=== PATIENT | female | born 1945 ===

== ENCOUNTER 2019-09-04 10:59 | Inpatient (IN) | payer MEDICARE, OTHER ==
[2019-09-04] MEDS ORDERED: NALOXONE 0.4 MG/ML 1 ML VIAL IV PRN (15:20)
[2019-09-04] MEDS ORDERED: ONDANSETRON 4 MG/2 ML VIAL IVP PRN (15:20)
[2019-09-04] MEDS ORDERED: DIPHENOX-ATROP 2.5-0.025 MG 1 EACH TAB PO PRN (15:28)
[2019-09-04] MEDS ORDERED: SODIUM CHLORIDE 0.9% 1,000 ML IV ONE (15:29)
--- NOTE | 2019-09-04 15:56 | P.HPIM ---
History of Present Illness H&P Date: 09/04/19 Chief Complaint: Patient transferred from [place] due to Covid relief The patient is a 73-year-old Serbian female with a past medical history of obesity who initially presented to [place] earlier yesterday with complaints of fever along with nausea vomiting and diarrhea and dry cough for the last several days. The patient was found to be covid positive and subsequently transferred here to [facility] as part of CoVID relief. The patient is Chaldean and her Yakut is minimal resulting in severe language barrier hence most of this history is obtained from medical records sent here from [place]. Apparently the history was taken as family was translating for the patient. There are no reports of shortness of breath, headache, sore throat or chest pain or reports of any sick contacts or recent travel. The patient did complain of fevers chills fatigue. Lab and imaging Review of records indicated a white count of 5.0 hemoglobin 12.9 platelets 182 BNP 37, sodium 134 potassium 3.9, bicarb 20, magnesium 1.7 , prolactin 0.73 , troponin 0.01 creatinine 0.94. AST 273 LT 173, CK 803, CRP 138 fibrinogen 529 LDH 601, lactate 1.1, EKG showed sinus tachycardia with a rate of 112. QTC was 467 Chest x-ray showed bibasilar opacities left greater than right concerning for multifocal infection . Patient was noted to be febrile with a temperature 102.9 and had normal saturations of 95% on room air The patient was noted to be Covid positive and was given doses of Pl aquenil,azithromycin and Rocephin Review of Systems pertinent pauses perHPI otherwise limited by patient's language barrier Medications and Allergies Home Medications Medication Instructions Recorded Confirmed Type Acetaminophen Tab [Tylenol Tab] 500 mg PO BID 09/04/19 09/04/19 History Apixaban [Eliquis] 2.5 mg PO BID 09/04/19 09/04/19 History Aspirin EC [Ecotrin Low Dose] 81 mg PO DAILY 09/04/19 09/04/19 History Atorvastatin [Lipitor] 40 mg PO HS 09/04/19 09/04/19 History Calcitriol [Rocaltrol] 0.25 mcg PO MOWEFR 09/04/19 09/04/19 History Calcium Carb-Vit D 500Mg-200Un 1 tab PO DAILY 09/04/19 09/04/19 History [Oscal 500+D] Cyanocobalamin (Vitamin B-12) 2,500 mcg PO DAILY 09/04/19 09/04/19 History [Vitamin B-12] Darbepoetin Shon [Aranesp] 60 mcg SQ WE 09/04/19 09/04/19 History Docusate [Colace] 100 mg PO BID 09/04/19 09/04/19 History Ergocalciferol [Vitamin D2] 50,000 unit PO Q7D 09/04/19 09/04/19 History FLUoxetine HCL [PROzac] 20 mg PO DAILY 09/04/19 09/04/19 History Ferrous Sulfate [Feosol] 325 mg PO Q7D 09/04/19 09/04/19 History Icosapent Ethyl [Vascepa] 2 gm PO AC-BID 09/04/19 09/04/19 History Levothyroxine Sodium [Synthroid] 125 mcg PO AC-BRKFST 09/04/19 09/04/19 History Lidocaine 5% Patch [Lidoderm] 2 patch TRANSDERM DAILY 09/04/19 09/04/19 History Megestrol [Megace] 400 mg PO DAILY 09/04/19 09/04/19 History Metoprolol Tartrate [Lopressor] 50 mg PO BID 09/04/19 09/04/19 History Sierraville-3 Acid Ethyl Esters [Lovaza] 1 gm PO BID 09/04/19 09/04/19 History Polyethylene Glycol 3350 [Miralax] 17 gm PO DAILY 09/04/19 09/04/19 History Allergies Allergy/AdvReac Type Severity Reaction Status Date / Time prednisone Allergy Rash/Hives Verified 09/04/19 15:24 Thiazides Allergy Unknown Verified 09/04/19 15:24 lisinopril AdvReac Cough Verified 09/04/19 15:24 band-aid Allergy Rash/Hives Uncoded 09/04/19 15:24 Physical Exam Vitals: Intake and Output 09/04/19 09/04/19 09/04/19 06:59 14:59 22:59 Other: Weight 69.3 kg Constitutional: No acute distress, conversant, pleasant Eyes: Anicteric sclerae, moist conjunctiva, no lid-lag, PERRLA ENMT: NC/AT,Oropharynx clear, no erythema, exudates Neck:Supple, FROM, no masses, or JVD, No carotid bruits; No thyromegaly Lungs: Clear to auscultation, Clear to percussion, Normal respiratory effort, no accessory muscle use Cardiovascular: Heart regular in rate and rhythm, No murmurs, gallops, or rubs no peripheral edema Abdominal: Soft Nontender, nom distended, no guarding, no rebound or rigidity, Normoactive bowel sounds No hepatomegaly, No splenomegaly, No palpable mass No abdominal wall hernia noted Skin: Normal temperature, tone, texture, turgor, No induration No subcutaneous nodules, No rash, lesions, No ulcers Extremities:No digital cyanosis No clubbing, Pedal pulses intact and symmetrical Radial pulses intact and symmetrical Normal gait and station, No calf tenderness Psychiatric: Alert and oriented to person, place and time, Appropriate affect Intact judgement Neuro: Muscles Strength 5/5 in all 4 extremities, Sensation to light touch grossly present throughout, Cranial nerves II-XII grossly intact. No focal sensory deficits Assessment and Plan Assessment: Acute Covid Infection Sepsis Covid pneumonia Acute gastroenteritis due to Covid mild hyponatremia Plan: The patient is admitted anticipated greater than 2 midnight stay with sepsis secondary to acute Covid infections and likely a viral COVID pneumonia with acute gastroenteritis secondary to Covid. The patient is continued on ant ibiotic therapy with azithromycin and Rocephin, continued on Plaquenil, zinc, with plans for infectious diseases consultation. We'll check C. diff, chest x- ray, CRP, d-dimer, LDH, CBC CMP in the morning. We'll continue supportive management with Tylenol, Lomotil. Place patient on respiratory droplet precautions. Continue to monitor clinical course. Initiate heparin for DVT prophylaxis along with SCDs. CODE STATUS: Full code Anticipated discharge place: Home Greater than 60 minutes was spent in evaluation of this patient
[2019-09-04 16:47] LABS: Basophils % (A) 0 %; Eosinophils % (A) 1 %; HCT 41.2 % (34.0-46.0); HGB 13.7 gm/dL (11.4-16.0); Lymphocytes # (A) 0.5 k/uL (1.0-4.8); Lymphocytes % (A) 11 %; MCH 28.4 pg (25.0-35.0); MCHC 33.2 g/dL (31.0-37.0); MCV 85.6 fL (80.0-100.0); Mean Platelet Volume 9.1; Monocytes # (A) 0.1 k/uL (0-1.0); Monocytes % (A) 3 %; Neutrophils # (A) 3.8 k/uL (1.3-7.7); Neutrophils % (A) 83 %; Platelet Count 162 k/uL (150-450); RBC 4.81 m/uL (3.80-5.40); RDW 12.9 % (11.5-15.5); WBC 4.6 k/uL (3.8-10.6)
[2019-09-04 16:59] LABS: Calcium 8.7 mg/dL (8.4-10.2); Magnesium 1.9 mg/dL (1.6-2.3); Potassium 3.6 mmol/L (3.5-5.1); Total Bilirubin 0.5 mg/dL (0.2-1.3); Total Protein 7.8 g/dL (6.3-8.2)
[2019-09-04] MEDS: HYDROXYCHLOROQUINE SULFATE 200 MG TAB PO SCH (20:41)
[2019-09-04] MEDS: HEPARIN SODIUM,PORCINE 5,000 UNIT/ML 1 ML VIAL SQ SCH (20:41)
[2019-09-04] MEDS: SODIUM CHLORIDE 0.9% 1,000 ML IV SCH ×2 (20:42→22:29)
[2019-09-04] MEDS: ACETAMINOPHEN TAB 325 MG TAB PO PRN (22:25)
[2019-09-05 06:51] LABS: Basophils % (A) 0 %; Eosinophils % (A) 0 %; HCT 37.6 % (34.0-46.0); HGB 12.5 gm/dL (11.4-16.0); Lymphocytes # (A) 1.1 k/uL (1.0-4.8); Lymphocytes % (A) 25 %; MCH 28.6 pg (25.0-35.0); MCHC 33.4 g/dL (31.0-37.0); MCV 85.9 fL (80.0-100.0); Mean Platelet Volume 8.6; Monocytes # (A) 0.1 k/uL (0-1.0); Monocytes % (A) 3 %; Neutrophils # (A) 3.1 k/uL (1.3-7.7); Neutrophils % (A) 71 %; Platelet Count 186 k/uL (150-450); RBC 4.38 m/uL (3.80-5.40); RDW 12.9 % (11.5-15.5); WBC 4.4 k/uL (3.8-10.6)
[2019-09-05 06:59] LABS: Albumin 3.3 g/dL (3.5-5.0); Calcium 7.9 mg/dL (8.4-10.2); Total Bilirubin 0.6 mg/dL (0.2-1.3); Total Protein 6.5 g/dL (6.3-8.2)
[2019-09-05 07:00] LABS: Potassium 3.7 mmol/L (3.5-5.1)
--- NOTE | 2019-09-05 07:47 | XR ---
EXAMINATION TYPE: XR chest 1V DATE OF EXAM: 09/05/2019 COMPARISON: 09/03/2019 HISTORY: Cough TECHNIQUE: Single frontal view of the chest is obtained. FINDINGS: Coarsened interstitium with small amount of fluid in minor fissure and subsegmental atelec tasis or infiltrate at the lung bases. Heart mildly enlarged and is atherosclerotic change aorta. No pneumothorax. Diffuse osteopenia and arthropathy shoulders. Mild soft tissue prominence in the right paratracheal region could be correlated with PA and lateral views of the chest on a short-term basis. Chronic rib deformities noted. IMPRESSION: 1. Coarsened interstitium correlate for interstitial pneumonitis. Subsegmental areas of consolidation involving the lung bases may been the basis of atelectasis or developing pneumonia.
[2019-09-05] MEDS: HYDROXYCHLOROQUINE SULFATE 200 MG TAB PO SCH ×2 (07:59→20:54)
[2019-09-05] MEDS: ZINC SULFATE 220 MG CAP PO SCH (07:59)
[2019-09-05] MEDS: AZITHROMYCIN 250 MG TAB PO SCH (07:59)
[2019-09-05] MEDS: ACETAMINOPHEN TAB 325 MG TAB PO PRN ×2 (07:59→19:27)
[2019-09-05] MEDS: HEPARIN SODIUM,PORCINE 5,000 UNIT/ML 1 ML VIAL SQ SCH ×2 (07:59→19:27)
[2019-09-05] MEDS: CALCIUM CARB-VIT D 500MG-200UN 1 EACH TAB PO SCH (07:59)
[2019-09-05 08:28] LABS: C Reactive Protein 152.6 mg/L (<10.0)
--- NOTE | 2019-09-05 12:57 | P.CONS ---
History of Present Illness - Reason for Consult Consult date: 09/04/19 COVID 19 infection Requesting physician: Roosevelt Yao - Chief Complaint Fever and shortness of breath X few days - History of Present Illness Patient is 73-year-old [place] woman who apparently seemed less Bhutanese patient presented to with increasing shortness of breath fever and diarrhea but he hasn't had been going on for a few days before she presented to the hospital patient was evaluated at outside facility apparently the patient did have a chest x-ray we did shows bibasilar opacities left greater than right, patient did have mildly elevated liver enzymes elevated CRP and LDH and the patient did have a coVID 19 testing which came back positive, patient subsequently has been transferred to this facility in view of no beds available at that hospital for management of underlying coVID 19 infection. Most of the information has been obtained from review of the chart as the patient hardly can speak any Bhutanese, she also good to most of the questions answered, no vomiting or diarrhea were reported by the nursing staff, his CBC remains to be elevated Review of Systems Positive points has been mentioned in HPI complete review could not be obtained because of language barrier Past Medical History Past Medical History: No Reported History History of Any Multi-Drug Resistant Organisms: None Reported Past Surgical History: No Surgical Hx Reported Past Anesthesia/Blood Transfusion Reactions: No Reported Reaction Past Psychological History: No Psychological Hx Reported Smoking Status: Never smoker - Past Family History Father Family Medical History: Unable to Obtain Medications and Allergies Home Medications Medication Instructions Recorded Confirmed Type Acetaminophen [Tylenol Extra 500 mg PO BID 09/04/19 09/04/19 History Strength] Aspirin [Adult Low Dose Aspirin EC] 81 mg PO DAILY 09/04/19 09/04/19 History Calcium Carb-Vit D 500Mg-200Un 1 tab PO DAILY 09/04/19 09/04/19 History [Oscal 500+D] Ergocalciferol [Vitamin D2 1,250 mcg PO Q7D 09/04/19 09/04/19 History (DRISDOL)] Allergies Allergy/AdvReac Type Severity Reaction Status Date / Time No Known Allergies Allergy Verified 09/04/19 17:44 Physical Exam Vitals: Vital Signs Temp Pulse Resp BP Pulse Ox 09/05/19 11:00 98.2 F 83 17 100/56 96 09/05/19 08:05 94 17 09/05/19 07:00 100.3 F H 94 17 112/63 93 L 09/05/19 03:46 98.4 F 78 17 96/60 96 09/04/19 23:49 99.7 F H 97 17 117/65 95 09/04/19 22:24 99.9 F H 09/04/19 19:28 100.9 F H 98 17 120/74 94 L 09/04/19 15:20 97 Intake and Output 09/04/19 09/05/19 09/05/19 22:59 06:59 14:59 Intake Total 200 Balance 200 Intake: Oral 200 Other: # Voids 1 1 Weight 69.3 kg GENERAL DESCRIPTION: Elderly female lying in bed, no distress. No tachypnea or accessory muscle of respiration use. HEENT: Shows Pallor , no scleral icterus. Oral mucous membrane is dry. No pharyngeal erythema or thrush NECK: Trachea central, no thyromegaly. LUNGS: Unlabored breathing. Decreased present at the base. No wheeze or crackle. HEART: S1, S2, regular rate and rhythm. No loud murmur ABDOMEN: Soft, no tenderness , guarding or rigidity, no organomegaly EXTREMITIES: No edema of feet. SKIN: No rash, no masses palpable. NEUROLOGICAL: The patient is awake, alert, orientation could not be determined mood and affect normal Results CBC & Chem 7: 09/05/19 06:24 09/05/19 06:24 Labs: Abnormal Lab Results - Last 24 Hours (Table) 09/04/19 09/04/19 09/05/19 Range/Units 16:40 16:40 06:24 Lymphocytes # 0.5 L (1.0-4.8) k/uL D-Dimer 0.86 H (<0.60) mg/L FEU Sodium 136 L (137-145) mmol/L Carbon Dioxide 18 L (22-30) mmol/L Glucose 105 H (74-99) mg/dL Calcium (8.4-10.2) mg/dL AST 140 H (14-36) U/L ALT 119 H (4-34) U/L Lactate Dehydrogenase (313-618) U/L C-Reactive Protein (<10.0) mg/L Albumin (3.5-5.0) g/dL 04/14/20 Range/Units 06:24 Lymphocytes # (1.0-4.8) k/uL D-Dimer (<0.60) mg/L FEU Sodium 136 L (137-145) mmol/L Carbon Dioxide 20 L (22-30) mmol/L Glucose (74-99) mg/dL Calcium 7.9 L (8.4-10.2) mg/dL AST 98 H (14-36) U/L ALT 91 H (4-34) U/L Lactate Dehydrogenase 1126 H (313-618) U/L C-Reactive Protein 152.6 H (<10.0) mg/L Albumin 3.3 L (3.5-5.0) g/dL Assessment and Plan Assessment: 1- patient presented to the outside facility with fever and increasing shortness of breath or cough in this patient chest x-ray with bilateral interstitial inf iltrate patient had did have elevated LDH and CRP and liver enzymes high clinical suspicious for covid19 infection, this subsequently has been confirmed on the nasopharyngeal swab (1) COVID-19 Current Visit: Yes Status: Acute Code(s): U07.1 - COVID-19 SNOMED Code(s): 770785783 (2) Pneumonia Current Visit: Yes Status: Acute Code(s): J18.9 - PNEUMONIA, UNSPECIFIED ORGANISM SNOMED Code(s): 214629741 Plan: 1- patient will be treated with plaquenil , zince and zithromax per protocol 2-we will hold on any steroids as the patient not requiring any supplemental oxygen at this point 3-droplet isolation and watch the patient closely for any respiratory distress We will follow on clinical condition and cultures to further adjust medication if needed Thank you for this consultation will follow this patient with you Time with Patient: Greater than 30
--- NOTE | 2019-09-05 14:54 | P.PN ---
Subjective Progress Note Date: 09/05/19 Patient is seen and examined at bedside, had a fever of 100.3 earlier, language barrier. Unable to understand her concerns, no acute events overnight. Objective - Vital Signs Vital signs: Vital Signs Temp 98.2 F 09/05/19 11:00 Pulse 83 09/05/19 11:00 Resp 17 09/05/19 11:00 BP 100/56 09/05/19 11:00 Pulse Ox 96 09/05/19 11:00 Intake & Output 09/04/19 09/05/19 09/05/19 18:59 06:59 18:59 Intake Total 200 1280 Balance 200 1280 Weight 69.3 kg Intake: Intake, IV Titration 800 Amount Sodium Chloride 0.9% 1, 750 000 ml @ 100 mls/hr IV . Q10H MARICRUZ Rx#:[id number] cefTRIAXone 1 gm In 50 Sodium Chloride 0.9% 50 ml @ 100 mls/hr IVPB Q24HR MARICRUZ Rx#:[id number] Oral 200 480 Other: # Voids 1 3 # Bowel Movements 1 - Exam Constitutional: No acute distress, conversant, pleasant Eyes: Anicteric sclerae, moist conjunctiva, no lid-lag, PERRLA ENMT: NC/AT,Oropharynx clear, no erythema, exudates Neck:Supple, FROM, no masses, or JVD, No carotid bruits; No thyromegaly Lungs: Diminished in the bases with bibasilar crackles, currently unlabored on room air Cardiovascular: Heart regular in rate and rhythm, No murmurs, gallops, or rubs no peripheral edema Abdominal: Soft Nontender, nom distended, no guarding, no rebound or rigidity, Normoactive bowel sounds No hepatomegaly, No splenomegaly, No palpable mass No abdominal wall hernia noted Skin: Normal temperature, tone, texture, turgor, No induration No subcutaneous nodules, No rash, lesions, No ulcers Extremities:No digital cyanosis No clubbing, Pedal pulses intact and symmetrical Radial pulses intact and symmetrical Normal gait and station, No calf tenderness Psychiatric: Alert and oriented to person, place and time, Appropriate affect Intact judgement Neuro: Muscles Strength 5/5 in all 4 extremities, Sensation to light touch grossly present throughout, Cranial nerves II-XII grossly intact. No focal s ensory deficits - Labs CBC & Chem 7: 09/05/19 06:24 04/14/20 06:24 Labs: Abnormal Lab Results - Last 24 Hours (Table) 09/04/19 09/04/19 09/05/19 Range/Units 16:40 16:40 06:24 Lymphocytes # 0.5 L (1.0-4.8) k/uL D-Dimer 0.86 H (<0.60) mg/L FEU Sodium 136 L (137-145) mmol/L Carbon Dioxide 18 L (22-30) mmol/L Glucose 105 H (74-99) mg/dL Calcium (8.4-10.2) mg/dL AST 140 H (14-36) U/L ALT 119 H (4-34) U/L Lactate Dehydrogenase (313-618) U/L C-Reactive Protein (<10.0) mg/L Albumin (3.5-5.0) g/dL 09/05/19 Range/Units 06:24 Lymphocytes # (1.0-4.8) k/uL D-Dimer (<0.60) mg/L FEU Sodium 136 L (137-145) mmol/L Carbon Dioxide 20 L (22-30) mmol/L Glucose (74-99) mg/dL Calcium 7.9 L (8.4-10.2) mg/dL AST 98 H (14-36) U/L ALT 91 H (4-34) U/L Lactate Dehydrogenase 1126 H (313-618) U/L C-Reactive Protein 152.6 H (<10.0) mg/L Albumin 3.3 L (3.5-5.0) g/dL Assessment and Plan Assessment: Acute Covid pneumonia * Chest x-ray showing coarsened interstitial correlate for interstitial pneumonitis subsegmental areas of consolidation involving the lung bases possible atelectasis or developing pneumonia * LDH 1126, crp 152.6, transaminitis decreasing * Continue regimen with azithromycin and Rocephin and hydroxychloroquine and zinc Sepsis * Secondary to above problem * Patient still febrile, without leukocytosis * Continue antibiotic regimen above * Discontinue IV fluids today at the patient's lungs sound pretty crackly today Acute gastroenteritis due to Covid * C. diff ordered and pending * Continue Lomotil mild hyponatremia * Improved with IV fluids Disposition * Patient doing well continue to monitor repeat chest x-ray and labs tomorrowmo re
[2019-09-05] MEDS: SODIUM CHLORIDE 0.9% 1,000 ML IV SCH ×2 (19:28→20:58)
--- NOTE | 2019-09-05 22:01 | PN ---
PROGRESS NOTE DATE OF SERVICE: 09/05/2019 REASON FOR FOLLOWUP: Acute COVID-19 pneumonia. INTERVAL HISTORY: The patient is currently afebrile. She has been breathing comfortably. The patient not in any distress, is breathing comfortably on room air. Unable to provide any history because of language barrier. No vomiting or diarrhea has been reported. PHYSICAL EXAMINATION: Blood pressure 115/86, pulse 92, temperature 98.5. She is 94% on room air. General description is an elderly female lying in bed in no distress. RESPIRATORY SYSTEM: Unlabored breathing with decreased intensity of breath sounds. No wheeze. HEART: S1, S2. Regular rate and rhythm. ABDOMEN: Soft. No tenderness. LABS: Hemoglobin is 12.5, white count 4.4, BUN of 15, creatinine 0.82. DIAGNOSTIC IMPRESSION AND PLAN: Patient with acute COVID-19 pneumonia. Patient at this time to be continued on Zithromax, Plaquenil, zinc. IV fluid should be Hep-locked, as we need to keep the patient in negative balance. Will monitor clinical course closely. EDWARD / TEMON: [id number] / FLAVIO
--- NOTE | 2019-09-06 07:24 | XR ---
EXAMINATION TYPE: XR chest 1V DATE OF EXAM: 09/06/2019 COMPARISON: 09/05/2019 INDICATION: Covid pneumonia TECHNIQUE: Single frontal view of the chest is obtained. FINDINGS: The heart size is mildly prominent. The pulmonary vasculature is normal. Is mild increased lung markings along the minor fissure on the right. Increased bibasilar infiltrates are present. Findings are relatively stable from comparison. IMPRESSION: 1. Stable bibasilar and right midlung infiltrates.
[2019-09-06] MEDS: HEPARIN SODIUM,PORCINE 5,000 UNIT/ML 1 ML VIAL SQ SCH ×2 (07:53→20:32)
[2019-09-06] MEDS: CALCIUM CARB-VIT D 500MG-200UN 1 EACH TAB PO SCH (07:53)
[2019-09-06] MEDS: ZINC SULFATE 220 MG CAP PO SCH (07:53)
[2019-09-06] MEDS: AZITHROMYCIN 250 MG TAB PO SCH (07:53)
[2019-09-06] MEDS: HYDROXYCHLOROQUINE SULFATE 200 MG TAB PO SCH ×2 (07:53→20:31)
[2019-09-06 08:03] LABS: Basophils % (A) 0 %; Eosinophils % (A) 0 %; HGB 11.7 gm/dL (11.4-16.0); Lymphocytes # (A) 0.6 k/uL (1.0-4.8); Lymphocytes % (A) 11 %; MCH 28.2 pg (25.0-35.0); MCHC 32.6 g/dL (31.0-37.0); MCV 86.8 fL (80.0-100.0); Mean Platelet Volume 8.9; Monocytes # (A) 0.2 k/uL (0-1.0); Monocytes % (A) 3 %; Neutrophils # (A) 4.9 k/uL (1.3-7.7); Neutrophils % (A) 84 %; Platelet Count 205 k/uL (150-450); RBC 4.15 m/uL (3.80-5.40); WBC 5.8 k/uL (3.8-10.6)
[2019-09-06 08:26] LABS: Calcium 8.1 mg/dL (8.4-10.2); Potassium 3.4 mmol/L (3.5-5.1); Total Bilirubin 0.4 mg/dL (0.2-1.3); Total Protein 6.1 g/dL (6.3-8.2)
--- NOTE | 2019-09-06 10:02 | P.PN ---
Subjective Progress Note Date: 09/06/19 Patient is seen and examined at bedside, had a fever of 100.5 last night and low grade temp earlier of 99.8, language barrier. Unable to understand her concerns, no acute events overnight. Objective - Vital Signs Vital signs: Vital Signs Temp 99.4 F 09/06/19 07:00 Pulse 87 09/06/19 07:00 Resp 18 09/06/19 07:00 BP 127/78 09/06/19 07:00 Pulse Ox 93 L 09/06/19 07:00 Intake & Output 09/05/19 09/06/19 09/06/19 18:59 06:59 18:59 Intake Total 1280 100 100 Balance 1280 100 100 Intake: Intake, IV Titration 800 Amount Sodium Chloride 0.9% 1, 750 000 ml @ 100 mls/hr IV . Q10H MARICRUZ Rx#:[id number] cefTRIAXone 1 gm In 50 Sodium Chloride 0.9% 50 ml @ 100 mls/hr IVPB Q24HR MARICRUZ Rx#:[id number] Oral 480 100 100 Other: # Voids 3 1 # Bowel Movements 1 1 - Exam Constitutional: No acute distress, conversant, pleasant Eyes: Anicteric sclerae, moist conjunctiva, no lid-lag, PERRLA ENMT: NC/AT,Oropharynx clear, no erythema, exudates Neck:Supple, FROM, no masses, or JVD, No carotid bruits; No thyromegaly Lungs: Diminished in the bases with bibasilar crackles, currently unlabored on room air Cardiovascular: Heart regular in rate and rhythm, No murmurs, gallops, or rubs no peripheral edema Abdominal: Soft Nontender, nom distended, no guarding, no rebound or rigidity, Normoactive bowel sounds No hepatomegaly, No splenomegaly, No palpable mass No abdominal wall hernia noted Skin: Normal temperature, tone, texture, turgor, No induration No subcutaneous nodules, No rash, lesions, No ulcers Extremities:No digital cyanosis No clubbing, Pedal pulses intact and symmetrical Radial pulses intact and symmetrical Normal gait and station, No calf tenderness Psychiatric: Alert and oriented to person, place and time, Appropriate affect Intact judgement Neuro: Muscles Strength 5/5 in all 4 extremities, Sensation to light touch grossly present throughout, Cranial nerves II-XII grossly intact. No focal sensory deficits - Labs CBC & Chem 7: 09/06/19 06:37 09/06/19 06:37 Labs: Abnormal Lab Results - Last 24 Hours (Table) 09/06/19 09/06/19 Range/Units 06:37 06:37 Lymphocytes # 0.6 L (1.0-4.8) k/uL Sodium 135 L (137-145) mmol/L Potassium 3.4 L (3.5-5.1) mmol/L Calcium 8.1 L (8.4-10.2) mg/dL AST 53 H (14-36) U/L ALT 69 H (4-34) U/L Lactate Dehydrogenase 875 H (313-618) U/L Total Protein 6.1 L (6.3-8.2) g/dL Albumin 3.0 L (3.5-5.0) g/dL Assessment and Plan Assessment: Acute Covid pneumonia * Chest x-ray indicating stable bibasilar and right midlung infiltrates * still febrile, without leukocytosis * Continue antibiotic regimen above * Discontinue IV fluids today at the patient's lungs sound pretty crackly today Acute gastroenteritis due to Covid * C. diff was negative * Continue Lomotil mild hyponatremia * Improved with IV fluids Disposition * Patient doing well continue to monitor * Anticipated discharge in 24-48 hours
[2019-09-06 10:12] LABS: C Reactive Protein 178.8 mg/L (<10.0)
[2019-09-06] MEDS: ACETAMINOPHEN TAB 325 MG TAB PO PRN ×2 (11:31→20:31)
[2019-09-06 16:45] LABS: Ferritin 3704.9 ng/mL (10.0-291.0)
[2019-09-06] MEDS: ENOXAPARIN 40 MG/0.4 ML SYRINGE SQ SCH (23:11)
--- NOTE | 2019-09-06 23:19 | PN ---
PROGRESS NOTE DATE OF SERVICE: 09/06/2019 REASON FOR FOLLOWUP: COVID-19 pneumonia. INTERVAL HISTORY: The patient did spike a fever of 101.9 degrees Fahrenheit this afternoon. The patient was seen in the morning. The patient has been breathing comfortably, in no distress. No supplemental oxygen. No vomiting or any diarrhea reported. Language barrier; she is unable to provide a reliable history, though. PHYSICAL EXAMINATION: Blood pressure 146/100 with a pulse of 100, temperature 101.9. She is 94% on room air. General description is an elderly female lying in bed in no distress. RESPIRATORY SYSTEM: Unlabored breathing with decreased intensity of breath sounds. No wheeze. HEART: S1, S2. Regular rate and rhythm. ABDOMEN: Soft. No tenderness. LABS: Hemoglobin 11.7, white count 5.8. BUN of 10, creatinine 0.79. Liver enzymes are mildly elevated. DIAGNOSTIC IMPRESSION AND PLAN: 1. Patient acute COVID-19 pneumonia, for which the patient is covered appropriately with Zithromax, Plaquenil and zinc. Will add Solu-Medrol. 2. New fever. Will check blood cultures, check a UA and adjust antibiotic further if needed. MMODL / IJN: [id number] /
[2019-09-06] MEDS: methylPREDNISolone SOD SUCCI 40 MG/ML 1 ML VIAL IV SCH (23:20)
[2019-09-07] MEDS: methylPREDNISolone SOD SUCCI 40 MG/ML 1 ML VIAL IV SCH ×2 (07:50→20:47)
[2019-09-07] MEDS: HYDROXYCHLOROQUINE SULFATE 200 MG TAB PO SCH ×2 (07:50→20:47)
[2019-09-07] MEDS: CALCIUM CARB-VIT D 500MG-200UN 1 EACH TAB PO SCH (07:50)
[2019-09-07] MEDS: ENOXAPARIN 40 MG/0.4 ML SYRINGE SQ SCH ×2 (07:51→20:47)
[2019-09-07] MEDS: AZITHROMYCIN 250 MG TAB PO SCH (07:51)
[2019-09-07] MEDS: ZINC SULFATE 220 MG CAP PO SCH (07:51)
[2019-09-07 08:34] LABS: Basophils % (A) 0 %; Eosinophils % (A) 0 %; HCT 35.9 % (34.0-46.0); HGB 11.9 gm/dL (11.4-16.0); Lymphocytes # (A) 0.4 k/uL (1.0-4.8); Lymphocytes % (A) 8 %; MCH 28.4 pg (25.0-35.0); MCHC 33.2 g/dL (31.0-37.0); MCV 85.8 fL (80.0-100.0); Mean Platelet Volume 8.6; Monocytes # (A) 0.1 k/uL (0-1.0); Monocytes % (A) 1 %; Neutrophils # (A) 4.6 k/uL (1.3-7.7); Neutrophils % (A) 89 %; Platelet Count 277 k/uL (150-450); RBC 4.18 m/uL (3.80-5.40); RDW 12.9 % (11.5-15.5); WBC 5.1 k/uL (3.8-10.6)
[2019-09-07 08:38] LABS: ALT 65 U/L (4-34); AST 49 U/L (14-36); African American GFR (CKD) >90 (>60 ml/min/1.73 sqM); Albumin 3.3 g/dL (3.5-5.0); Alkaline Phosphatase 87 U/L (38-126); Anion Gap 9 mmol/L; Blood Urea Nitrogen 16 mg/dL (7-17); Calcium 8.6 mg/dL (8.4-10.2); Carbon Dioxide 24 mmol/L (22-30); Chloride 104 mmol/L (98-107); Glucose 102 mg/dL (74-99); LDH 848 U/L (313-618); Non-African American GFR(CKD) 80 (>60 ml/min/1.73 sqM); Sodium 137 mmol/L (137-145); Total Bilirubin 0.4 mg/dL (0.2-1.3); Total Protein 6.7 g/dL (6.3-8.2)
[2019-09-07 08:50] LABS: C Reactive Protein 222.2 mg/L (<10.0)
--- NOTE | 2019-09-07 14:59 | PN ---
PROGRESS NOTE DATE OF SERVICE: 09/07/2019 REASON FOR FOLLOW UP: 1. Acute COVID-19 pneumonia. 2. Patient with a new fever. INTERVAL HISTORY: The patient did spike a fever last night of 101.9. The patient has been afebrile since then. The patient is breathing comfortably on room air and does not seem in any respiratory distress. No vomiting, no diarrhea has been reported by the staff. PHYSICAL EXAMINATION: Blood pressure 110/67, pulse 81, temp 98.5, she is 94% on room air. General description is an elderly female up in the bed, in no distress. RESPIRATORY SYSTEM: Unlabored breathing with decreased breath sounds at the base, no wheeze. HEART: S1, S2. Regular rate and rhythm. ABDOMEN: Soft, no tenderness. LABS: Hemoglobin is 11.1, white count of 5.1, BUN of 13, creatinine 0.74. Liver enzymes mildly elevated and CRP still elevated. DIAGNOSTIC IMPRESSION AND PLAN: Patient with acute COVID-19 pneumonia and patient is covered with Plaquenil, Flomax and will monitor clinical course closely with new fever. UA has been requested. Patient covered with Rocephin. This will be repeated and we will monitor clinical course closely. MMODL / IJN: [id number] /
[2019-09-07 17:13] LABS: Ferritin 4005.2 ng/mL (10.0-291.0)
--- NOTE | 2019-09-07 18:02 | P.PN ---
Subjective Progress Note Date: 09/07/19 Principal diagnosis: Sepsis Patient is a 73-year-old female with history of acute gastroenteritis secondary to cold. Patient continues to have fevers on Zithromax, Rocephin, Plaquenil and zinc Objective - Vital Signs Vital signs: Vital Signs Temp 98.6 F 09/07/19 15:00 Pulse 80 09/07/19 15:00 Resp 18 09/07/19 15:00 BP 122/75 09/07/19 15:00 Pulse Ox 93 L 09/07/19 15:00 Intake & Output 09/06/19 09/07/19 09/07/19 18:59 06:59 18:59 Intake Total 200 200 Balance 200 200 Intake: Oral 200 200 Other: # Voids 3 1 3 # Bowel Movements 1 - Constitutional General appearance: Present: cooperative, no acute distress - Respiratory Respiratory: bilateral: CTA - Cardiovascular Rhythm: regular - Gastrointestinal General gastrointestinal: Present: normal bowel sounds - Psychiatric Psychiatric: Present: appropriate affect - Labs CBC & Chem 7: 09/07/19 07:13 09/07/19 07:09 Labs: Abnormal Lab Results - Last 24 Hours (Table) 09/07/19 09/07/19 Range/Units 07:09 07:13 Lymphocytes # 0.4 L (1.0-4.8) k/uL Glucose 102 H (74-99) mg/dL Ferritin 4005.2 H (10.0-291.0) ng/mL AST 49 H (14-36) U/L ALT 65 H (4-34) U/L Lactate Dehydrogenase 848 H (313-618) U/L C-Reactive Protein 222.2 H (<10.0) mg/L Albumin 3.3 L (3.5-5.0) g/dL Assessment and Plan (1) COVID-19 Narrative/Plan: Patient continued this to have fevers, continue Plaquenil, azithromycin, steroids, zinc, respiratory droplet precaution appreciate infectious disease input Disposition: Continue to monitor closely deep heparin for DVT prophylaxis Current Visit: Yes Status: Acute Code(s): U07.1 - COVID-19 SNOMED Code(s): 332335885
[2019-09-08] MEDS: CALCIUM CARB-VIT D 500MG-200UN 1 EACH TAB PO SCH (07:40)
[2019-09-08] MEDS: AZITHROMYCIN 250 MG TAB PO SCH (07:40)
[2019-09-08] MEDS: ZINC SULFATE 220 MG CAP PO SCH (07:41)
[2019-09-08] MEDS: ENOXAPARIN 40 MG/0.4 ML SYRINGE SQ SCH ×2 (07:41→20:37)
[2019-09-08] MEDS: methylPREDNISolone SOD SUCCI 40 MG/ML 1 ML VIAL IV SCH ×2 (07:41→20:37)
[2019-09-08] MEDS: HYDROXYCHLOROQUINE SULFATE 200 MG TAB PO SCH (07:41)
--- NOTE | 2019-09-08 16:57 | PN ---
PROGRESS NOTE DATE OF SERVICE: 09/08/2019. REASON FOR FOLLOWUP: Acute COVID-19 pneumonia. INTERVAL HISTORY: The patient is currently afebrile, she is breathing comfortably on room air. The patient currently does not seem to be in respiratory distress and comfortable. She answered good to most of the questions asked. No diarrhea has been reported. PHYSICAL EXAMINATION: Blood pressure 113/62 with a pulse of 80, temperature 97.5. She is 94% on room air. General description is an elderly female, up in the bed in no distress. RESPIRATORY SYSTEM: Unlabored breathing, clear to auscultation anteriorly. HEART: S1, S2. Regular rate and rhythm. ABDOMEN: Soft. No tenderness. LABS: Hemoglobin is 11.8, white count 5.1. BUN of 15, creatinine 0.74. No chest x-ray in the last 48 hours. DIAGNOSTIC IMPRESSION AND PLAN: Patient with acute COVID-19 pneumonia, for which the patient has completed her Plaquenil. She is currently on Zithromax being slow with this which can be slowly weaned off, incentive spirometry. Repeat x-ray and continue supportive care. MMODL / IJN: [id number] / FLAVIO
--- NOTE | 2019-09-08 18:07 | P.PN ---
Subjective Progress Note Date: 09/08/19 Principal diagnosis: Covid pneumonia Patient is a 73-year-old female with: 19 pneumonia, acute gastroenteritis. Patient has completed course of Aquanil continues to be on azithromycin with low-grade fevers Objective - Vital Signs Vital signs: Vital Signs Temp 97.5 F L 09/08/19 14:38 Pulse 88 09/08/19 14:38 Resp 18 09/08/19 14:38 BP 113/63 09/08/19 14:38 Pulse Ox 94 L 09/08/19 14:38 Intake & Output 09/07/19 09/08/19 09/08/19 18:59 06:59 18:59 Intake Total 200 300 186 Balance 200 300 186 Intake: Oral 200 300 186 Other: # Voids 3 1 # Bowel Movements 1 - Respiratory Respiratory: bilateral: CTA - Cardiovascular Rhythm: regular - Gastrointestinal General gastrointestinal: Present: normal bowel sounds - Psychiatric Psychiatric: Present: appropriate affect - Labs CBC & Chem 7: 09/07/19 07:13 09/07/19 07:09 Labs: Microbiology - Last 24 Hours (Table) 09/06/19 23:05 Blood Culture - Preliminary Blood No Growth after 24 hours Assessment and Plan (1) COVID-19 Narrative/Plan: Status post continues on azithromycin incentive spirometry appreciated infect ious disease input Current Visit: Yes Status: Acute Code(s): U07.1 - COVID-19 SNOMED Code(s): 958917335 Plan: Acute gastroenteritis secondary to cold. C. diff negative currently for diarrhea B able to discharge in next 24-48 hours
[2019-09-09 06:55] LABS: Basophils % (A) 0 %; Eosinophils # (A) 0.1 k/uL (0-0.7); Eosinophils % (A) 0 %; HCT 39.3 % (34.0-46.0); HGB 12.7 gm/dL (11.4-16.0); Lymphocytes # (A) 0.6 k/uL (1.0-4.8); Lymphocytes % (A) 4 %; MCHC 32.2 g/dL (31.0-37.0); MCV 86.8 fL (80.0-100.0); Mean Platelet Volume 8.4; Monocytes # (A) 0.4 k/uL (0-1.0); Monocytes % (A) 3 %; Neutrophils % (A) 92 %; Platelet Count 405 k/uL (150-450); RBC 4.53 m/uL (3.80-5.40); RDW 12.8 % (11.5-15.5); WBC 15.2 k/uL (3.8-10.6)
[2019-09-09 07:39] VITALS: BP 140/65; PULSE 79; RESP 16; TEMP 97.9
[2019-09-09] MEDS ORDERED: SODIUM CHLORIDE 0.9% 1,000 ML IV SCH (08:45)
[2019-09-09] MEDS: CALCIUM CARB-VIT D 500MG-200UN 1 EACH TAB PO SCH (10:10)
[2019-09-09] MEDS: ZINC SULFATE 220 MG CAP PO SCH (10:10)
[2019-09-09] MEDS: ENOXAPARIN 40 MG/0.4 ML SYRINGE SQ SCH (10:10)
[2019-09-09] MEDS: methylPREDNISolone SOD SUCCI 40 MG/ML 1 ML VIAL IV SCH (10:10)
[2019-09-09] MEDS: AZITHROMYCIN 250 MG TAB PO SCH (10:10)
--- NOTE | 2019-09-09 11:28 | XR ---
EXAMINATION TYPE: XR chest 1V portable DATE OF EXAM: 09/09/2019 HISTORY: pneumonia progress. REFERENCE: Previous study dated 09/06/2019. FINDINGS: The heart is mildly prominent. There is mild atelectasis in the right midlung. Infiltrate i n the left lung base has largely cleared. Pleural spaces are clear. IMPRESSION: IMPROVED AERATION, LEFT LUNG BASE.
--- NOTE | 2019-09-09 12:10 | P.DS ---
Providers Date of admission: 09/04/19 14:41 Expected date of discharge: 09/09/19 Attending physician: Karma Reese DO Consults: 09/04/19 15:22 Consult Physician Routine Consulting Provider: Shaista Alvarado Consult Reason/Comments: covid Do you want consulting provider notified?: Yes Primary care physician: Stated None - Discharge Diagnosis(es) (1) COVID-19 Patient is a 73-year-old female with a history of obesity who presented to [place] on the day prior to admission with fever and nausea and vomiting. Patient was found to be Covid positive was transfer to a facility as part of Covid relief. Patient had no shortness of breath headaches sore throat or chest pain. Initial imaging showed a white count of 5.0, hemoglobin 12.9, platelets of 182, BNP P showed a sodium 134, BNP of 37, potassium 3.9, CRP of 138, EKG showed sinus tachycardia with a rate of 112, QTC is 467. Patient was febrile to 102.9 and had saturation 95% on room air. Current Visit: Yes Status: Acute (2) Pneumonia Improvement on chest x-ray Current Visit: Yes Status: Acute Hospital Course: Patient was initially treated with Tracleer, azithromycin, Rocephin she had intermittent fever started the hospitalization patient had mildly elevated liver enzymes and CRP. Her initial chest x-ray showed bibasilar and right midlung infiltrates. Patient was also treated with Rocephin and azithromycin and Zinc Today's lab patient had a a elevated WBC but she has been on steroids, she had incidental lactic acid which was elevated repeat lactic acid was improving at 2.1. Patient does not appear toxic septic she has nonlabored breathing temperature 97.9 and a pulse of 79,, respiratory rate of 16, blood pressure 140/65 and a room air saturation of 93%. Patient stable for discharge with outpatient follow-up. Time spent the day of discharge 35 minutes Patient Condition at Discharge: Stable Plan - Discharge Summary Discharge Rx Participant: Yes New Discharge Prescriptions: No Action Acetaminophen [Tylenol Extra Strength] 500 mg PO BID Calcium Carb-Vit D 500Mg-200Un [Oscal 500+D] 1 tab PO DAILY Aspirin [Adult Low Dose Aspirin EC] 81 mg PO DAILY Ergocalciferol [Vitamin D2 (DRISDOL)] 1,250 mcg PO Q7D Discharge Medication List Acetaminophen [Tylenol Extra Strength] 500 mg PO BID 09/04/19 [History] Aspirin [Adult Low Dose Aspirin EC] 81 mg PO DAILY 09/04/19 [History] Calcium Carb-Vit D 500Mg-200Un [Oscal 500+D] 1 tab PO DAILY 09/04/19 [History] Ergocalciferol [Vitamin D2 (DRISDOL)] 1,250 mcg PO Q7D 09/04/19 [History] Activity/Diet/Wound Care/Special Instructions: PCP: Dr. Chun Pardo-[phone] Discharge Disposition: HOME SELF-CARE
--- NOTE | 2019-09-12 12:54 | CDI ---
Documentation Clarification Form Date: 09/12/2019 12:43:23 PM From: Diane Delvalle Phone: If you have a question about this query, please contact Darlyn Pollock Trade Union Secretary at [phone] between 8am and 5pm. Admit Date: 09/04/2019 02:41:00 PM Patient Name: Lindsay Rodriguez Visit Number: [id number] Discharge Date: 09/09/2019 01:49:00 PM ATTENTION: The Clinical Documentation Specialists (CDI) and [facility] Coding Staff appreciate your assistance in clarifying documentation. Please respond to the clarification below the line at the bottom and electronically sign. The CDI & [facility] Coding staff will review the response and follow-up if needed. Please note: Queries are made part of the Legal Health Record. If you have any questions, please contact the author of this message via ITS. Dr. Karma Reese H and P documents the patient has sepsis. DCS documents does not appear to have toxic sepsis. Please clarify if patient had sepsis or was it ruled out. History/Risk Factors: Patient COVID positive with pneumonia and gastroenteritis Clinical Indicators: WBC 4.4 Lactic acid 2.9 Vitals signs on admission: 97.9 F 79 16 140/65 93% RA Treatment: Antiboitics ID Consult: Antibiotics: Rocephin azithromycin Panquenil, zinc In your professional opinion, please clarify if these findings signify one of the following conditions, whether patient had sepsis or was this ruled out. Condition Sepsis ruled out SIRS, without underlying infectious process Sepsis Severe Sepsis Septic Shock Other, please specify Unable to determine SIRS Criteria (2 or more of the following may indicate SIRS): -Temperature < 96.8F (36C) or > 101.0F (38.3C) -Heart Rate > 90 bpm -Respiratory Rate > 20 breaths/min or PaCO2 < 32 mmHg -White Blood Cell Count > 12,000 or < 4,000 cells/mm3 or > 10% bands -Lactate >2.0 mmol/L (>4.0 is equivalent to septic shock) MTDD
--- NOTE | 2019-09-21 06:07 | CDI ---
Documentation Clarification Form Date: 09/12/2019 11:43:00 AM From: Diane Delvalle Phone: If you have a question about this query, please contact Darlyn Pollock Vac Press Operator at [phone] between 8am and 5pm. Admit Date: 09/04/2019 02:41:00 PM Patient Name: Lindsay Rodriguez Visit Number: [id number] Discharge Date: 09/09/2019 01:49:00 PM ATTENTION: The Clinical Documentation Specialists (CDI) and [facility] Coding Staff appreciate your assistance in clarifying documentation. Please respond to the clarification below the line at the bottom and electronically sign. The CDI & [facility] Coding staff will review the response and follow-up if needed. Please note: Queries are made part of the Legal Health Record. If you have any questions, please contact the author of this message via ITS. Dr. Karma Reese H and P documents the patient has sepsis. DCS documents does not appear to have toxic sepsis. Please clarify if patient had sepsis or was it ruled out. History/Risk Factors: Patient COVID positive with pneumonia and gastroenteritis Clinical Indicators: WBC 4.4 Lactic acid 2.9 Vitals signs on admission: 97.9 F 79 16 140/65 93% RA Treatment: Antiboitics ID Consult: Antibiotics: Rocephin azithromycin Panquenil, zinc In your professional opinion, please clarify if these findings signify one of the following conditions, whether patient had sepsis or was this ruled out. Condition Sepsis ruled out SIRS, without underlying infectious process Sepsis Severe Sepsis Septic Shock Other, please specify Unable to determine SIRS Criteria (2 or more of the following may indicate SIRS): -Temperature < 96.8F (36C) or > 101.0F (38.3C) -Heart Rate > 90 bpm -Respiratory Rate > 20 breaths/min or PaCO2 < 32 mmHg -White Blood Cell Count > 12,000 or < 4,000 cells/mm3 or > 10% bands -Lactate >2.0 mmol/L (>4.0 is equivalent to septic shock) MTDD
--- NOTE | 2019-09-27 10:33 | CDI ---
Documentation Clarification Form Date: 09/12/2019 11:43:00 AM From: Diane Delvalle Phone: If you have a question about this query, please contact Darlyn Pollock Occupational Health Physician at [phone] between 8am and 5pm. Admit Date: 09/04/2019 02:41:00 PM Patient Name: Lindsay Rodriguez Visit Number: [id number] Discharge Date: 09/09/2019 01:49:00 PM ATTENTION: The Clinical Documentation Specialists (CDI) and [facility] Coding Staff appreciate your assistance in clarifying documentation. Please respond to the clarification below the line at the bottom and electronically sign. The CDI & [facility] Coding staff will review the response and follow-up if needed. Please note: Queries are made part of the Legal Health Record. If you have any questions, please contact the author of this message via ITS. Dr. Karma Reese H and P documents the patient has sepsis. DCS documents does not appear to have toxic sepsis. Please clarify if patient had sepsis or was it ruled out. History/Risk Factors: Patient COVID positive with pneumonia and gastroenteritis Clinical Indicators: WBC 4.4 Lactic acid 2.9 Vitals signs on admission: 97.9 F 79 16 140/65 93% RA Treatment: Antiboitics ID Consult: Antibiotics: Rocephin azithromycin Panquenil, zinc In your professional opinion, please clarify if these findings signify one of the following conditions, whether patient had sepsis or was this ruled out. Condition Sepsis ruled out SIRS, without underlying infectious process Sepsis Severe Sepsis Septic Shock Other, please specify Unable to determine SIRS Criteria (2 or more of the following may indicate SIRS): -Temperature < 96.8F (36C) or > 101.0F (38.3C) -Heart Rate > 90 bpm -Respiratory Rate > 20 breaths/min or PaCO2 < 32 mmHg -White Blood Cell Count > 12,000 or < 4,000 cells/mm3 or > 10% bands -Lactate >2.0 mmol/L (>4.0 is equivalent to septic shock) MTDD
--- NOTE | 2019-10-03 09:11 | CDI ---
Documentation Clarification Form Date: 09/12/2019 11:43:00 AM From: Diane Delvalle Phone: If you have a question about this query, please contact Darlyn Pollock Dye Tub Operator at [phone] between 8am and 5pm. Admit Date: 09/04/2019 02:41:00 PM Patient Name: Lindsay Rodriguez Visit Number: [id number] Discharge Date: 09/09/2019 01:49:00 PM ATTENTION: The Clinical Documentation Specialists (CDI) and [facility] Coding Staff appreciate your assistance in clarifying documentation. Please respond to the clarification below the line at the bottom and electronically sign. The CDI & [facility] Coding staff will review the response and follow-up if needed. Please note: Queries are made part of the Legal Health Record. If you have any questions, please contact the author of this message via ITS. Dr. Adriane Camacho H and P documents the patient has sepsis. DCS documents does not appear to have toxic sepsis. Please clarify if patient had sepsis or was it ruled out. History/Risk Factors: Patient COVID positive with pneumonia and gastroenteritis Clinical Indicators: WBC 4.4 Lactic acid 2.9 Vitals signs on admission: 97.9 F 79 16 140/65 93% RA Treatment: Antiboitics ID Consult: Antibiotics: Rocephin azithromycin Panquenil, zinc In your professional opinion, please clarify if these findings signify one of the following conditions, whether patient had sepsis or was this ruled out. Condition Sepsis ruled out SIRS, without underlying infectious process Sepsis Severe Sepsis Septic Shock Other, please specify Unable to determine SIRS Criteria (2 or more of the following may indicate SIRS): -Temperature < 96.8F (36C) or > 101.0F (38.3C) -Heart Rate > 90 bpm -Respiratory Rate > 20 breaths/min or PaCO2 < 32 mmHg -White Blood Cell Count > 12,000 or < 4,000 cells/mm3 or > 10% bands -Lactate >2.0 mmol/L (>4.0 is equivalent to septic shock) MTDD
--- NOTE | 2019-10-18 05:43 | CDI ---
Documentation Clarification Form Date: 09/12/2019 11:43:00 AM From: Diane Delvalle Phone: : Diane Delvalle If you have a question about this query, please contact Darlyn Pollock Fermenter Operator at [phone] between 8am and 5pm. Admit Date: 09/04/2019 02:41:00 PM Patient Name: Lindsay Rodriguez Visit Number: [id number] Discharge Date: 09/09/2019 01:49:00 PM ATTENTION: The Clinical Documentation Specialists (CDI) and [facility] Coding Staff appreciate your assistance in clarifying documentation. Please respond to the clarification below the line at the bottom and electronically sign. The CDI & [facility] Coding staff will review the response and follow-up if needed. Please note: Queries are made part of the Legal Health Record. If you have any questions, please contact the author of this message via ITS. Dr. Adriane Camacho H & P documents-patient has sepsis. Dischg Sum documents- does not appear to have toxic sepsis. History/Risk Factors: Patient COVID positive with pneumonia and gastroenteritis Clinical Indicators: WBC 4.4 Lactic acid 2.9 Vitals signs on admission: 97.9 F 79 16 140/65 93% RA Treatment: Antiboitics ID Consult: Antibiotics: Rocephin azithromycin Panquenil, zinc In your professional opinion, please clarify if these findings signify whether patient had sepsis or was this ruled out. Sepsis ruled out SIRS, without underlying infectious process Sepsis Severe Sepsis Septic Shock Other, please specify Unable to determine SIRS Criteria (2 or more of the following may indicate SIRS): -Temperature < 96.8F (36C) or > 101.0F (38.3C) -Heart Rate > 90 bpm -Respiratory Rate > 20 breaths/min or PaCO2 < 32 mmHg -White Blood Cell Count > 12,000 or < 4,000 cells/mm3 or > 10% bands -Lactate >2.0 mmol/L (>4.0 is equivalent to septic shock) Sepsis present on admission MTDD
== END 2019-09-09 13:49 | disposition home or self-care (01) | DRG 871 ==
LOC: 4SSUR 14:41
PROVIDERS: ADMIT Internal Medicine; ATTEND Internal Medicine
DX: A41.89 Other specified sepsis (principal); U07.1 COVID-19; J12.89 Other viral pneumonia; A08.39 Other viral enteritis; E87.1 Hypo-osmolality and hyponatremia; E87.2 Acidosis; Z79.01 Long term (current) use of anticoagulants; Z79.82 Long term (current) use of aspirin; Z79.890 Hormone replacement therapy; Z79.899 Other long term (current) drug therapy; E66.9 Obesity, unspecified; Z68.34 Body mass index [BMI] 34.0-34.9, adult; D72.829 Elevated white blood cell count, unspecified; T38.0X5A Adverse effect of glucocorticoids and synthetic analogues, initial encounter; R94.5 Abnormal results of liver function studies
CPT/HCPCS: 71045; 80053; 82728; 83605; 83615; 83735; 85025; 85379; 86140; 87040; 87324; 94760